=== PATIENT | female | born 1980 | race Caucasian/White ===

== ENCOUNTER 2016-09-05 12:04 | Emergency (ER) | payer OTHER ==
[~2016-09-05] VITALS: Ht 157.5 cm; Wt 54.4 kg
[2016-09-05] MEDS ORDERED: IV NS 0.9% 1,000 ML ONE ×2 (12:10→14:03)
[2016-09-05] MEDS ORDERED: IV SET PRIMARY 1 EA INFUS.SET MC ONE ×2 (12:10→14:03)
--- NOTE | 2016-09-05 12:10 | NUR ---
PT ANDRE FROM HOME TO ER BED 21 C/O GENERALIZED WEAKNESS AND DIZZINESS SINCE 829 THIS AM. C/O HEAVY VAGINAL BLEEDING. STATES BEEN GOING ON FOR WEEKS NOW. NOT EXPECTING . HYPOTENSIVE IN THE FIELD PER REPORT. GOWNED AND PLACED ON MONITOR. STABLE VITALS AT THIS TIME. SHARAN CAO.
--- NOTE | 2016-09-05 12:12 | NUR ---
DR AGRAWAL AT BEDSIDE FOR EVAL.
--- NOTE | 2016-09-05 12:13 | NUR ---
CRATE REPAIRER AT BEDSIDE FOR BLOOD DRAW.
[2016-09-05 12:18] LABS: BASOPHILS # (AUTO) 0.1 /CMM (0.0-0.2); BASOPHILS % (AUTO) 0.5 % (0.0-2.0); EOSINOPHILS # (AUTO) 0.1 /CMM (0.0-0.7); EOSINOPHILS % (AUTO) 0.3 % (0.0-6.0); HEMATOCRIT 25 % (33-45); HEMOGLOBIN 8.1 g/dL (11.5-14.8); LYMPHOCYTES # (AUTO) 1.2 /CMM (0.8-4.8); LYMPHOCYTES % (AUTO) 6.7 % (20.0-44.0); MEAN CORPUSCULAR HEMOGLOBIN 32 PG (26.0-33.0); MEAN CORPUSCULAR HGB CONC 32 g/dl (31.0-36.0); MEAN CORPUSCULAR VOLUME 98 fL (82-100); MONOCYTES # (AUTO) 0.8 /CMM (0.1-1.30); MONOCYTES % (AUTO) 4.6 % (2.0-12.0); NEUTROPHILS # (AUTO) 15.3 /CMM (1.8-8.9); NEUTROPHILS % (AUTO) 87.9 % (43.0-81.0); PLATELET COUNT (AUTO) 377 /CMM (150-450); RDW COEFFICIENT OF VARIATION 13.6 (11.5-15.0); RED BLOOD CELL COUNT(AUTO) 2.56 MIL/uL (4.0-5.2); WHITE BLOOD COUNT (AUTO) 17.5 K/uL (4.3-11.0)
[2016-09-05 12:28] LABS: CALCIUM, SERUM 7.4 mg/dL (8.5-10.1); CREATININE 0.9 mg/dL (0.6-1.3); POTASSIUM 5.3 mmol/L (3.5-5.1)
[2016-09-05] MEDS ORDERED: IV NS 0.9% 1,000 ML BAG IV ONE ×2 (12:30→14:30)
[2016-09-05] MEDS ORDERED: OXYTOCIN 10 UNIT/ML ML ONE (13:13)
--- NOTE | 2016-09-05 13:27 | NUR ---
U/S TECH AT BEDSIDE FOR PELVIC ULTRASOUND.
[2016-09-05] MEDS ORDERED: MISCELLANEOUS MED 1 EA EA XX ONE ×3 (13:30→15:00)
[2016-09-05] MEDS ORDERED: OXYTOCIN 10 UNIT/ML ML IV ONE ×2 (13:30→14:30)
[2016-09-05] MEDS ORDERED: OXYTOCIN 10 UNIT/ML ML IM ONE (13:30)
[2016-09-05] MEDS ORDERED: METHYLERGONOVINE MALEATE 0.2 MG/ML AMPUL IM ONE (13:30)
[2016-09-05] MEDS ORDERED: BLOOD IV SET 1 EA INFUS.SET MC ONE (14:10)
[2016-09-05] MEDS ORDERED: IV NS 0.9% 500 ML IV ONE (14:10)
[2016-09-05] MEDS ORDERED: OXYTOCIN IV PRN (14:30)
[2016-09-05] MEDS ORDERED: D5W IV PRN (14:30)
--- NOTE | 2016-09-05 14:40 | NUR ---
BLOOD TRANSFUSION STARTED. STABLE VITAL AT THIS TIME. WILL MONITOR CLOSELY.
[2016-09-05 14:56] LABS: INR 1.02 (0.87-1.13); PROTHROMBIN TIME 10.9 SECS (9.5-12.7)
[2016-09-05 15:03] LABS: D-DIMER 0.51 mg/L(FEU (0.17-0.50)
--- NOTE | 2016-09-05 15:21 | NUR ---
DR AGRAWAL ON THE PHONE WITH ADMITTING DR SUZIE ROSE
[2016-09-05] MEDS ORDERED: IV SET PRIMARY PUMP SET 1 EA INFUS.SET MC ONE (15:39)
--- NOTE | 2016-09-05 15:40 | NUR ---
BLOOD TRANSFUSION COMPLETED. PT STBLE VITALS.
[2016-09-05] MEDS ORDERED: IV NS 0.9% 1,000 ML IV PRN (15:53)
[2016-09-05] MEDS ORDERED: Z GUARD REMEDY 2 OZ OINT TP PRN (16:00)
[2016-09-05] MEDS ORDERED: ONDANSETRON HCL/PF 4 MG/2 ML VIAL IVP PRN (16:00)
[2016-09-05] MEDS ORDERED: MAG HYDROX/AL HYDROX/SIMETH 30 ML UDC PO PRN (16:00)
[2016-09-05] MEDS ORDERED: MAGNESIUM HYDROXIDE 30 ML UDC PO PRN (16:00)
[2016-09-05] MEDS ORDERED: ACETAMINOPHEN 325 MG TABLET PO PRN (16:00)
[2016-09-05] MEDS ORDERED: ZOLPIDEM TARTRATE 5 MG TABLET PO PRN (16:00)
[2016-09-05] MEDS ORDERED: HYDROCODONE/APAP 5/325MG 1 EACH TABLET PO PRN (16:00)
--- NOTE | 2016-09-05 19:06 | NUR ---
Patient discharged to home in stable condition. Written and verbal after care instructions given. Patient verbalizes understanding of instruction.IV removed. Catheter intact and site benign. Pressure and 4x4 applied to site. No bleeding noted.
[2016-09-05 19:07] VITALS: BP 98/71
[2016-09-06] MEDS ORDERED: PANTOPRAZOLE 40 MG TABLET.DR PO SCH (07:30)
== END 2016-09-05 19:09 | disposition home or self-care (01) ==
LOC: ER 12:05 → UNDOADMIN 16:36 → TELE-TD 16:36
DX: O20.0 Threatened abortion (principal); F17.210 Nicotine dependence, cigarettes, uncomplicated; Z3A.01 Less than 8 weeks gestation of pregnancy
CPT/HCPCS: 36415; 76856-TC; 80048-TC; 84702-TC; 84703-TC; 85025-TC; 85378-TC; 85385-TC; 85730-TC; 86921-TC; A4606; J2210; J2590; J7030; J7050; J7070; P9016-BL; Z7610